=== PATIENT | male | born 1990 | race American Indian/Alaskan Native ===

== ENCOUNTER 2016-11-07 22:58 | Emergency (ER) | payer SELFPAY ==
[2016-11-08 00:19] VITALS: BP 121/78
[2016-11-08 01:15] LABS: Bilirubin,Urine NEG (Negative); Blood,Urine NEG (Negative); Ketones,Urine NEG (Negative); Leukocyte Esterase,Urine NEG (Negative); Mucus,Urine FEW /HPF; Nitrite,Urine NEG (Negative); Protein,Urine <15 mg/dL mg/dL (Negative)
[2016-11-08 02:10] LABS: Basophils % (Auto) 0.9 % (0.0-1.8); Hematocrit 41.2 % (35.5-45.6); Hemoglobin 13.6 gm/dl (11.8-15.2); Mean Corpuscular HGB Conc 33 % (32-34); Mean Corpuscular Hemoglobin 28 pg (28-32); Mean Corpuscular Volume 83 fl (84-94); Platelet Count 137 K/mm3 (140-440); Red Blood Count 4.95 M/mm3 (3.65-5.03); Red Cell Distribution Width 13.9 % (13.2-15.2); White Blood Count 5.8 K/mm3 (4.5-11.0)
[2016-11-08 02:24] LABS: Alanine Aminotransferase 11 units/L (7-56); Albumin 4.3 g/dL (3.9-5); Albumin/Globulin Ratio 1.4 %; Alkaline Phosphatase 46 units/L (35-129); Anion Gap 16 mmol/L; BUN/Creatinine Ratio 17.27; Bilirubin,Total < 0.20 mg/dL (0.1-1.2); Blood Urea Nitrogen 19 mg/dL (9-20); Calcium 9.4 mg/dL (8.4-10.2); Carbon Dioxide 28 mmol/L (22-30); Chloride 103.2 mmol/L (98-107); Glucose 82 mg/dL (75-100); Lipase 51 units/L (13-60); Potassium 4.1 mmol/L (3.6-5.0); Sodium 143 mmol/L (137-145); Total Protein 7.3 g/dL (6.3-8.2)
--- NOTE | 2016-11-16 00:18 | ED Elopement Review ---
ED Pt Elopement review - Results review Lab results: Laboratory Tests 11/08/16 11/08/16 11/08/16 00:20 01:38 01:38 WBC 5.8 RBC 4.95 Hgb 13.6 Hct 41.2 MCV 83 L MCH 28 MCHC 33 RDW 13.9 Plt Count 137 L Lymph % (Auto) 36.3 H Carver % (Auto) 10.0 H Eos % (Auto) 2.0 Baso % (Auto) 0.9 Lymph # 2.1 Carver # 0.6 Eos # 0.1 Baso # 0.0 Seg Neutrophils % 50.8 Seg Neutrophils # 2.9 Sodium 143 Potassium 4.1 Chloride 103.2 Carbon Dioxide 28 Anion Gap 16 BUN 19 Creatinine 1.1 Estimated GFR > 60 BUN/Creatinine Ratio 17.27 Glucose 82 Calcium 9.4 Total Bilirubin < 0.20 AST 18 ALT 11 Alkaline Phosphatase 46 Total Protein 7.3 Albumin 4.3 Albumin/Globulin Ratio 1.4 Lipase 51 Urine Color Yellow Urine Turbidity Cloudy Urine pH 7.0 Ur Specific Gore 1.021 Urine Protein <15 mg/dl Urine Glucose (UA) Neg Urine Ketones Neg Urine Blood Neg Urine Nitrite Neg Urine Bilirubin Neg Urine Urobilinogen 2.0 Ur Leukocyte Esterase Neg Urine WBC (Auto) 3.0 Urine RBC (Auto) 24.0 Urine Mucus Few - Call Back decision Pt Call Back Decision: Pt to F/U with PMD
== END 2016-11-08 02:00 | disposition left against medical advice (07) ==
LOC: ED 22:58
DX: M54.5 Low back pain (principal); Z53.21 Procedure and treatment not carried out due to patient leaving prior to being seen by health care provider
CPT/HCPCS: 36415; 80053; 81001; 83690; 85025

== ENCOUNTER 2020-11-20 19:29 | Emergency (ER) | payer SELFPAY ==
--- NOTE | 2020-11-20 20:55 | XRay Report ---
Frontal chest with rib series 3 views INDICATION: Left chest pain IMPRESSION: The lungs are clear. No pneumothorax or pleural effusion. No displaced rib fracture ident ified. Signer Name: Ben Boss MD Signed: 11/20/2020 8:51 PM Workstation Name: [id number]
[2020-11-20] MEDS: ONDANSETRON 4 MG ODT TAB PO ONE (22:40)
[2020-11-20] MEDS: IBUPROFEN 600 MG TAB PO ONE (22:40)
[2020-11-20] MEDS: HYDROcodone/ACETAMINOPHEN 5-325 MG TAB PO ONE (22:40)
--- NOTE | 2020-11-20 22:43 | Emergency Department Report ---
ED Fall HPI - General Chief Complaint: Fall Stated Complaint: FALL/LEFT RIB PAIN Source: patient Mode of arrival: Ambulatory - History of Present Illness Initial Comments: Patient is a 30-year-old -[place] male with no past medical history presents to the ED with complaint of acute onset persistent severe left lateral rib and chest wall pain after he slipped in the house and fell onto a sharp edge of a trampoline frame that was in his child's room 3 days ago. Patient states that the pain was initially mild but over time the pain got worse especially with deep inhalation, any movement or palpation of the area. Patient states that he has been taking [id number] pain medication with no relief. Patient denies dizziness, syncope, hemoptysis, shortness of breath, neck pain, head or neck injuries, numbness and tingling or weakness of upper and lower extremities bilaterally, loss of consciousness or back pain. MD Complaint: fall, other (Left lateral rib and chest wall pain) -: days(s) (3) Fall From: standing When Fall Occurred: # days [employer] (3) Fall Witnessed: yes, by family Place Fall Occurred: home Loss of Consciousness: none Prolonged Down Time?: no Symptoms Prior to Fall: none Location: chest (left layteral rib and chest wall pain) Severity: severe Severity scale (0 -10): 7 Quality: sharp, aching Context: tripped/slipped Associated Symptoms: denies, chest paint (Left lateral rib and chest wall pain). denies: headache, neck pain, numbness, weakness, shortness of breath, abdominal pain, hematuria, unable to walk, lightheaded, vertigo, confusion, other - Related Data Previous Rx's Medication Instructions Recorded Last Taken Type Naproxen 500 mg PO Q12H PRN #24 tablet 11/20/20 Unknown Rx traMADoL [Ultram] 50 mg PO Q6HR PRN #10 tablet 11/20/20 Unknown Rx Allergies Allergy/AdvReac Type Severity Reaction Status Date / Time No Known Allergies Allergy Unverified 11/08/16 00:12 ED Review of Systems ROS: Stated complaint: FALL/LEFT RIB PAIN Other details as noted in HPI Constitutional: denies: chills, fever Eyes: denies: eye pain, eye discharge, vision change ENT: denies: ear pain, throat pain Respiratory: denies: cough, shortness of breath, wheezing Cardiovascular: chest pain (Left lateral chest and rib pain). denies: palpitations Endocrine: no symptoms reported Gastrointestinal: denies: abdominal pain, nausea, diarrhea Genitourinary: denies: urgency, dysuria Musculoskeletal: denies: back pain, joint swelling, arthralgia Skin: denies: rash, lesions Neurological: denies: headache, weakness, paresthesias Psychiatric: denies: anxiety, depression Hematological/Lymphatic: denies: easy bleeding, easy bruising ED Past Medical Hx - Past Medical History Previous Medical History?: No - Surgical History Past Surgical History?: Yes Hx Appendectomy: Yes (14 years old) - Social History Smoking Status: Never Smoker Substance Use Type: None - Medications Home Medications: Home Medications Medication Instructions Recorded Confirmed Last Taken Type Naproxen 500 mg PO Q12H PRN #24 tablet 11/20/20 Unknown Rx traMADoL [Ultram] 50 mg PO Q6HR PRN #10 tablet 11/20/20 Unknown Rx ED Physical Exam - General Limitations: No Limitations General appearance: alert, in no apparent distress - Head Head exam: Present: atraumatic, normocephalic, normal inspection - Eye Eye exam: Present: normal appearance, PERRL, EOMI Pupils: Present: normal accommodation - ENT ENT exam: Present: normal exam, normal orophraynx, mucous membranes moist, TM's normal bilaterally, normal external ear exam - Neck Neck exam: Present: normal inspection, full ROM - Respiratory Respiratory exam: Present: normal lung sounds bilaterally, chest wall tenderness (Palpable left lateral rib and chest wall tenderness). Absent: respiratory distress, wheezes, rales, rhonchi, stridor, accessory muscle use, decreased breath sounds - Cardiovascular Cardiovascular Exam: Present: regular rate, normal rhythm, normal heart sounds. Absent: systolic murmur, diastolic murmur, rubs, gallop - GI/Abdominal GI/Abdominal exam: Present: soft, normal bowel sounds. Absent: tenderness, guarding, rebound, hyperactive bowel sounds, hypoactive bowel sounds, organomegaly - Extremities Exam Extremities exam: Present: normal inspection, full ROM, normal capillary refill - Back Exam Back exam: Present: normal inspection, full ROM. Absent: tenderness, CVA tenderness (R), CVA tenderness (L), muscle spasm, paraspinal tenderness - Neurological Exam Neurological exam: Present: alert, oriented X3, CN II-XII intact, normal gait, reflexes normal - Psychiatric Psychiatric exam: Present: normal affect, normal mood - Skin Skin exam: Present: warm, dry, intact, normal color. Absent: rash ED Course Vital Signs 11/20/20 20:20 Temperature 98.9 F Pulse Rate 74 Respiratory 18 Rate Blood Pressure 132/84 O2 Sat by Pulse 100 Oximetry ED Medical Decision Making - Radiology Data Radiology results: report reviewed, image reviewed [facility] [address] [place] [address] XRay Report Signed Patient: SOURAV HARDIN JR MR#: [id number] : 1990 Acct:[id number] Age/Sex: 30 / M ADM Date: 11/20/20 Loc: ED Attending Dr: Ordering Physician: ED MD NEHAL Date of Service: 11/20/20 Procedure(s): XR ribs UNI w PA chest 3+V LT Accession Number(s): [id number] cc: ED MD NEHAL Fluoro Time In Minutes: Frontal chest with rib series 3 views INDICATION: Left chest pain IMPRESSION: The lungs are clear. No pneumothorax or pleural effusion. No displaced rib fracture identified. Signer Name: Ben Boss MD Signed: 11/20/2020 8:51 PM Workstation Name: [id number] Transcribed By: BC Dictated By: Ben Boss MD Electronically Authenticated By: Ben Boss MD Signed Date/Time: 11/20/202050 DD/ 49 TD/TT: - Medical Decision Making This is a 30-year-old -[place] male with no past medical history presents to the ED with complaint of acute onset persistent severe left lateral rib and chest wall pain after he slipped in the house and fell onto a sharp edge of a trampoline frame that was in his child's room 3 days ago. Patient states that the pain was initially mild but over time the pain got worse especially with deep inhalation, any movement or palpation of the area. Patient states that he has been taking [id number] pain medication with no relief. In the ED, patient is alert and oriented x3 and is not in any distress. - Differential Diagnosis rib fracture; rib contusion; chest wall contusion; pneumothorax Critical care attestation.: If time is entered above; I have spent that time in minutes in the direct care of this critically ill patient, excluding procedure time. ED Disposition Clinical Impression: Contusion of rib on left side Qualifiers: Encounter type: initial encounter Qualified Code(s): S20.212A - Contusion of left front wall of thorax, initial encounter Contusion of left chest wall Qualifiers: Encounter type: initial encounter Qualified Code(s): S20.212A - Contusion of left front wall of thorax, initial encounter Disposition: HOME / SELF CARE / HOMELESS Is pt being admited?: No Does the pt Need Aspirin: No Condition: Stable Instructions: Contusion, [id number], Chest Wall Pain, [id number], Rib Contusion Additional Instructions: The left rib and chest x-ray showed no acute rib fractures or subluxations, pneumothorax, pleural effusion or any cardiopulmonary abnormalities. Therefore take pain medication as needed, drink plenty of fluids and follow-up with a primary care physician in 5 to 7 days for reevaluation. Return to the ED immediately if symptoms get worse. Prescriptions: Naproxen 500 mg PO Q12H PRN #24 tablet PRN Reason: Pain , Severe (7-10) traMADoL [Ultram] 50 mg PO Q6HR PRN #10 tablet PRN Reason: Pain Referrals: [facility] [Provider Group] - 3-5 Days Time of Disposition: 22:48 Print Language: LITHUANIAN
[2020-11-20 23:18] VITALS: BP 124/82
== END 2020-11-20 23:18 | disposition home or self-care (01) ==
LOC: ED 19:29
DX: S20.212A Contusion of left front wall of thorax, initial encounter (principal); Z90.49 Acquired absence of other specified parts of digestive tract; Z79.899 Other long term (current) drug therapy; W19.XXXA Unspecified fall, initial encounter; Y93.89 Activity, other specified; Y92.009 Unspecified place in unspecified non-institutional (private) residence as the place of occurrence of the external cause; Y99.8 Other external cause status
CPT/HCPCS: Q0162